=== PATIENT | male | born 1960 | race Caucasian/White ===

== ENCOUNTER 2020-09-22 13:39 | Emergency (ER) | payer OTHER ==
[~2020-09-22] VITALS: Wt 99.8 kg
[~2020-09-22 13:39] MED LIST: IBUPROFEN600 MG PO; ROBAXIN500 M1 PO
[2020-09-22 13:45] VITALS: BP 131/78
== END 2020-09-22 14:05 | disposition home or self-care (01) ==
LOC: ED 13:39
DX: S80.11XA Contusion of right lower leg, initial encounter (principal); W22.8XXA Striking against or struck by other objects, initial encounter; Y93.89 Activity, other specified; Y92.89 Other specified places as the place of occurrence of the external cause; Y99.8 Other external cause status